=== PATIENT | male | born 1955 | race Caucasian/White ===

== ENCOUNTER → 2019-08-21 10:59 | Outpatient (CLI) | payer MEDICARE, OTHER, SELFPAY ==
--- NOTE | 2019-08-21 | DI.CT.S_ITS ---
PROCEDURE: CT PELVIS W CON INDICATIONS: MALIGNANT NEOPLASM OF PROSTATE TECHNIQUE: After the administration of oral contrast and intravenous contrast, 5 mm thick sections acquired from the iliac crests to the symphysis. 5 mm thick coronal and sagittal reformats were acquired. For radiation dose reduction, the following was used: automated exposure control, adjustment of mA and/or kV according to patient size. COMPARISON: None. FINDINGS: Image quality: Excellent. Peritoneum and bowel: Contrast enhanced bowel loops demonstrate normal wall thickness and caliber. No free fluid or air. Genitourinary: Bladder wall thickness is normal. Nodes and vessels: No iliac, pelvic, or inguinal adenopathy. Iliac vessels demonstrate normal size and enhancement. Bones: No suspicious bony lesions. Miscellaneous: No inguinal hernias. IMPRESSION: 1. No evidence of malignancy nor regional metastatic disease. Dictated by: Bryson Marmolejo M.D. on 08/21/2019 at 17:46 Approved by: Bryson Marmolejo M.D. on 08/21/2019 at 17:47
[2019-08-21 11:51] LABS: BUN Creatinine Ratio 29.7 (6-22); Blood Urea Nitrogen 22 mg/dL (9-20); Calcium 9.3 mg/dL (8.4-10.2); Carbon Dioxide 29 mmol/L (22-32); Chloride 103 mmol/L (98-107); Estimated Glomerular Filt Rate > 60.0 mL/min (>60); Glucose 98 mg/dL (80-110); HEMOLYSIS < 15 (0-50); Potassium 4.5 mmol/L (3.4-5.1); Sodium 136 mmol/L (137-145)
== END ==
PROVIDERS: PCP Family Medicine; Referring Provider Urology; Visit Provider Urology
DX: C61 Malignant neoplasm of prostate (principal)
CPT/HCPCS: 36415; 72193; 80048; Q9967

== ENCOUNTER 2019-10-25 12:12 | Day surgery (SDC) | payer MEDICARE, OTHER, SELFPAY ==
--- NOTE | 2019-10-25 | PATH_ITS ---
[facility] Accession Number: [id number] . 01 Material submitted: . PART A: rectum - RECTAL POLYP PART B: colon - COLON POLYP AT 60CM . 01 Clinical history: . SDC . 02 Diagnosis: A. Rectal Polyp, Polypectomy: Traditional serrated adenoma. Negative for high-grade dysplasia or malignancy. . B. Colon Polyp at 60 cm, Biopsy: Tubular adenoma. . MRV 10/30/2019 1012 Local . 02 Comment: A. A traditional serrated adenoma is considered an advanced adenoma. As such, assurance of complete removal of the lesion and a shortened surveillance interval are recommended. . 02 Electronically signed: . Farshad Luque MD, PhD, Pathologist NPI- [id number] . 01 Gross description: . A. Received in formalin, labeled rectal polyp, and consists of a 1.2 x 1.0 x 0.8 cm cuello-pink polyp. The base is inked blue, the specimen is bisected, and entirely submitted in cassette A1. B. Received in formalin, labeled polyp at 60 cm, and consists of multiple cuello fragments of soft tissue measuring 2.0 x 1.5 x 0.2 cm in aggregate. The specimen is entirely submitted in cassette B1. (EA/[id number]) /MRV 10/26/2019 1505 Local . 02 Pathologist provided ICD-10: D12.8, D12.6 . 02 CPT . 303516, 031825 Performed at: 01 [facility] [address] [facility][note 3], [place], [place] [id number] MD Angel Clarke MD Phone: [phone] Performed at: [facility] [address] [place], [place] [id number] MD Sharifa Gomez MD Phone: [phone]
[2019-10-25 12:37] VITALS: BP 151/80; PULSE 52; RESP 16; TEMP 36.6; O2SAT 100; BMI 25.8
[2019-10-25] MEDS: LACTATED RINGERS 1,000 ML 200 ML IV (12:37)
--- NOTE | 2019-10-25 13:06 | PM.HP.1 ---
History of Present Illness History of Present Illness Date Patient Seen: 10/25/19 Time Patient Seen: 13:06 Chief complaint: SDC Narrative: The patient presents for colorectal sreening. They have never had any previous examination for such. No personal history of colon cancer. Family history is unknown as he is adopted. On further history denies any recent gastrointestinal symptoms. No nausea, vomiting, abdominal pain, loss of appetite, unexplained weight loss, change in bowel habits, diarrhea, constipation, melena, hematochezia, or gross bright red blood per rectum. Patient History Medical History Prostate cancer (Acute) Surgical History H/O bilateral inguinal hernia repair (Acute) Family & Social History Social History: household members spouse Tobacco & Substance use: Smoking Status Current every day smoker alcohol intake current alcohol intake frequency 3 or more drinks per day Substance Use Type does not use Meds Home Medications and Allergies Home Medications Medication Instructions Recorded Confirmed Type nefazodone 150 mg PO HS #90 tab 03/01/16 10/25/19 Rx finasteride 5 mg PO DAILY 10/25/19 10/25/19 History Review of Systems Review of Systems Narrative: A 10 point review of systems is negative except as noted in the HPI Exam Vital Signs (past 8 hours): - 10/25/19 12:37 Temperature 98 F Pulse Rate 52 L Respiratory Rate 16 Blood Pressure 151/80 H Pulse Oximetry 100 Oxygen Delivery Method Room Air Narrative Exam Narrative: General-no acute distress, well nourished adult male HEENT-moist mucous membranes, no scleral icterus Neck-supple, no lymphadenopathy Chest- non labored respirations, clear to auscultation bilaterally Cardiac-regular rate no peripheral edema Abdomen-soft, nontender, non distended Extremities-warm, well perfused Neurological-alert and oriented, no focal deficits Assessment & Plan Assessment and plan (1) Screening for colon cancer: Status: Acute Assessment & Plan narrative: The patient requires colorectal screening and colonoscopy is recommended. Technical details were discussed. Risks, benefits, alternatives explained. Risks including but not limited to myocardial infarction, aspiration, bleeding, pain, missed lesion, incomplete examination, need for further radiographic studies, colonic perforation, and need for major abdominal surgery were discussed. All questions were answered to their satisfaction, and they are in agreement with this plan. COVID-19 COVID-19 status: Negative
[2019-10-25] MEDS: MIDAZOLAM 5 MG/5 ML VIAL IV ×2 (13:14→13:26)
[2019-10-25] MEDS: fentaNYL 250 MCG/5 ML INJ IV ×2 (13:14→13:26)
--- NOTE | 2019-10-25 13:58 | PM.OP.ENDO ---
Operative Date/Time/Diagnoses Date of procedure: 10/25/19 Time of procedure: 13:58 Pre-op diagnosis: Screening colonoscopy Post-op diagnosis: same Procedure & Clinicians Study performed: Colonoscopy Same procedure as scheduled: Yes Indications: 63-year-old male last colonoscopy 13 years ago presents for routine colonoscopy Surgeon: Tunde Flores Procedure Notes SCOAP/Timeout: Performed Procedure in detail: Patient placed in left lateral recumbent position. Time out was performed. Procedural sedation was administered with Versed and Fentanyl. Examination began with a thorough inspection of the perianal area there was no evidence of fissures, fistulae, external hemorrhoids or cutaneous malignancy. The colonoscopy scope was then placed into the rectum the the lumen was insufflated with air. The scope was carefully advanced forward. Ultimately the cecum was intubated and confirmed by identification of the ileocecal valve and the confluence of the taenia. The scope was then slowly withdrawn examining colon thoroughly in all directions. In the rectum the rectal columns were identified and retroflexion of the scope was performed for inspection of the distal rectum and anal canal. The colonoscopy was notable for the followin. Quality of the preparation-poor 2. Rectal adenomatous appearing polyp removed with hot snare approximately 1.5 cm in diameter hemostasis observed 3. Descending colon adenomatous appearing polyp approximately 1 cm in diameter at 60 cm from the anal verge removed with hot snare hemostasis observed 4. Sigmoid diverticulosis Scope withdrawal time: 13 Sedation minutes: 40 Findings: diverticulosis and polyp Specimen(s): other (Polyp x2) Complications: none Impression: Diverticulosis Polyps x2 removed Post-procedure Recommendations: Colonscopy in 5 years Disposition: same day surgery
[2019-10-25 14:07] VITALS: BP 128/72; PULSE 52; RESP 15; TEMP 36.3; O2SAT 95
[2019-10-25 14:11] VITALS: BP 130/68; PULSE 65; RESP 19; O2SAT 95
[2019-10-25 14:16] VITALS: BP 132/68; PULSE 51; RESP 18; O2SAT 94
[2019-10-25 14:20] VITALS: BP 139/76; PULSE 51; RESP 16; TEMP 36.2; O2SAT 97
[2019-10-25 14:21] VITALS: BP 137/75; PULSE 61; RESP 14; O2SAT 94
--- NOTE | 2019-10-25 14:56 | SUR.PHASEII ---
1435-Pt up and ambulating gait steady, to br voiding well, VSS, all ddc instructions given and pt verbalizes understanding. Iv dcd site clear, pt getting dressed now.
--- NOTE | 2019-10-25 14:57 | SUR.PHASEII ---
1445-Pt dcd via to curbside car and . No c/o
== END 2019-10-25 14:45 | disposition home or self-care (01) ==
PROVIDERS: PCP Family Medicine; Referring Provider Surgery; Visit Provider Surgery
PROC: 0DJD8ZZ Inspection of Lower Intestinal Tract, Via Natural or Artificial Opening Endoscopic (ICD-10-PCS; CPT 45378; principal; 2019-10-25 13:00)
DX: Z12.11 Encounter for screening for malignant neoplasm of colon (principal); F17.210 Nicotine dependence, cigarettes, uncomplicated; K57.30 Diverticulosis of large intestine without perforation or abscess without bleeding; D12.8 Benign neoplasm of rectum; D12.6 Benign neoplasm of colon, unspecified
CPT/HCPCS: 45385; 99152; 99153; J2250; J3010

== ENCOUNTER → 2019-10-26 09:05 | Outpatient (CLI) | payer MEDICARE, OTHER, SELFPAY ==
--- NOTE | 2019-10-26 | DI.NM.S_ITS ---
PROCEDURE: NM BONE SCAN WHOLE BODY RADIOPHARMACEUTICAL: 21.30 mCi Tc-99m MDP IV. INDICATIONS: Malignant neoplasm of prostate TECHNIQUE: Delayed whole-body scintigrams were obtained approximately 3-4 hours after intravenous injection of radiotracer. Anterior and posterior views were acquired from vertex to feet. Additional left and right oblique views of the pelvis were obtained. COMPARISON: [facility], CT, CT PELVIS W CON, 08/21/2019, 12:48. FINDINGS: No areas of relative intense radiotracer uptake that would be suspicious for osseous metastatic disease. No areas of photopenia identified in the osseous skeleton. Increased radiotracer uptake noted in the cervical spine, the lumbar spine, the shoulders bilaterally, the knees bilaterally and the left wrists compatible with osteoarthritis. No abnormal soft tissue uptake. Activity in the kidneys is normal and symmetric. IMPRESSION: No scintigraphic evidence of osseous metastatic Dictated by: Fanny Olmstead MD, PhD on 10/26/2019 at 14:22 Approved by: Fanny Olmstead MD, PhD on 10/26/2019 at 14:24
== END ==
PROVIDERS: PCP Family Medicine; Referring Provider Family Medicine
DX: C61 Malignant neoplasm of prostate (principal)
CPT/HCPCS: 78306; A9503

== ENCOUNTER → 2020-04-17 09:05 | Outpatient (CLI) | payer MEDICARE, OTHER, SELFPAY ==
[2020-04-18 07:36] LABS: Insulin Level Total 4.8 uIU/mL (2.6-24.9)
[2020-04-25 13:11] LABS: 1,25-Dihydroxy, Vitamin D-2 <10 pg/mL (.)
== END ==
PROVIDERS: PCP Family Medicine; Referring Provider Family Medicine; Visit Provider Family Medicine
DX: E55.9 Vitamin D deficiency, unspecified (principal); R53.83 Other fatigue; E74.39 Other disorders of intestinal carbohydrate absorption
CPT/HCPCS: 82306; 82652; 82777; 83516; 83525; 84080

== ENCOUNTER → 2020-07-08 09:02 | Outpatient (CLI) | payer MEDICARE, OTHER, SELFPAY ==
[2020-07-08 20:45] LABS: High Sensitivity CRP - Cardiac > 15.0 mg/L (1.0-3.0)
[2020-07-08 20:55] LABS: Prostate Specific Antigen < 0.064 ng/mL (0.10-4.00)
[2020-07-10 04:58] LABS: Homocysteine 9.2 umol/L (0.0-17.2)
[2020-07-10 22:36] LABS: Zinc 63 ug/dL (44-115)
== END ==
PROVIDERS: PCP Family Medicine; Visit Provider Family Medicine
DX: C61 Malignant neoplasm of prostate (principal)
CPT/HCPCS: 83090; 84153; 84630; 86140

== ENCOUNTER → 2020-12-31 12:02 | Outpatient (CLI) | payer MEDICARE, OTHER, SELFPAY ==
[2020-12-31 19:44] LABS: C-Reactive Protein Quant < 0.5 mg/dL (<1.0); Lactate Dehydrogenase 522 U/L (313-618)
[2020-12-31 20:17] LABS: Ferritin 23 ng/mL (18-464)
[2021-01-05 22:36] LABS: Alkaline Phosphatase, Bone Spe 15.7 ug/L (7.6-25.1)
[2021-01-08 14:34] LABS: Galectin -3 9.2
[2021-01-21 09:19] LABS: Result 4800
== END ==
PROVIDERS: PCP Family Medicine; Visit Provider Family Medicine
DX: C61 Malignant neoplasm of prostate (principal)
CPT/HCPCS: 82728; 82777; 83516; 83615; 84080; 84153; 86140

== ENCOUNTER → 2021-06-08 08:14 | Outpatient (CLI) | payer MEDICARE, OTHER, SELFPAY ==
[2021-06-08 18:32] LABS: Cholesterol 231 mg/dL (140-199); HDL Cholesterol 54 mg/dL (40-60); LDL Cholesterol Calculated 162 mg/dL (<100); Triglycerides 75 mg/dL (35-150)
[2021-06-08 19:04] LABS: Prostate Specific Antigen 0.223 ng/mL (0.10-4.00)
== END ==
PROVIDERS: PCP Family Medicine; Visit Provider Family Medicine
DX: E78.00 Pure hypercholesterolemia, unspecified (principal); C61 Malignant neoplasm of prostate
CPT/HCPCS: 80061; 84153

== ENCOUNTER → 2022-01-26 11:58 | Outpatient (CLI) | payer MEDICARE, OTHER, SELFPAY ==
--- NOTE | 2022-01-26 12:09 | DI.CT.S_ITS ---
PROCEDURE: CT LUNG LOW DOSE SCREENING INDICATIONS: Past History of smoking TECHNIQUE: Noncontrast 2.0-2.5 mm thick sections acquired from the pulmonary apices to the posterior costophrenic angles. 7 mm thick axial MIP, and 5 mm coronal and sagittal reformats were then acquired. A low radiation dose technique was utilized. COMPARISON: [facility], CT, CT CHEST WITHOUT CONTRAST, 12/05/2019, 11:00. FINDINGS: Image quality: Diagnostic, given the low radiation dose technique. Lungs and pleura: There is a stable 4 mm pulmonary nodule within the lateral aspect of the right upper lobe unchanged from the study dated December 05, 2019 (series 3/image 160). A stable 5 mm pulmonary nodule is present within the right middle lobe (series 3/image 224). A stable 8 mm pulmonary nodule is present within the right lower lobe (series 3/image 205). Mediastinum: Heart size is normal. No pericardial effusion. No mediastinal adenopathy by size criteria. Thoracic aorta and central pulmonary arteries are normal in size. Esophagus is normal in caliber. No hiatal hernia. Bones and chest wall: No suspicious bony lesions. No vertebral body compression fractures. No axillary or supraclavicular adenopathy by size criteria. Thyroid gland is unremarkable. Abdomen: Visualized upper abdomen solid organs and bowel loops appear normal in the absence of contrast. IMPRESSION: No suspicious pulmonary nodules or mass lesions. LUNG-RADS 1; annual CT surveillance recommended. Dictated by: Aury Kidd M.D. on 01/26/2022 at 13:29 Approved by: Aury Kidd M.D. on 01/26/2022 at 13:50
== END ==
PROVIDERS: PCP Family Medicine; Referring Provider Family Medicine; Visit Provider Family Medicine
DX: Z12.2 Encounter for screening for malignant neoplasm of respiratory organs (principal); C61 Malignant neoplasm of prostate; R91.8 Other nonspecific abnormal finding of lung field; Z87.891 Personal history of nicotine dependence
CPT/HCPCS: 36415; 71250; 84153

== ENCOUNTER → 2022-01-26 12:09 | Outpatient (CLI) | payer MEDICARE, OTHER, SELFPAY | PROVIDERS: PCP Family Medicine; Referring Provider Radiology Radiation Oncology; Visit Provider Radiology Radiation Oncology | DX: C61 Malignant neoplasm of prostate (principal) | CPT/HCPCS: 36415; 84153 ==

== ENCOUNTER → 2022-02-09 13:02 | Outpatient (CLI) | payer MEDICARE, OTHER, SELFPAY ==
[2022-02-09 21:04] LABS: Add Manual Diff / Slide Review NO; Basophils Absolute Auto 0 /uL (0-100); Basophils Percent Auto 0.3 % (0-2); Eosinophils Absolute Auto 100 /uL (0-450); Eosinophils Percent Auto 2.8 % (2-4); Hematocrit 33.8 % (41-53); Lymphocytes Absolute Auto 1300 /uL (1100-4500); Lymphocytes Percent Auto 29.2 % (25-40); Mean Corpuscular HGB Conc 32.6 % (30-36); Mean Corpuscular Hemoglobin 29.1 PG (26-34); Mean Corpuscular Volume 89.4 fL (80-100); Monocytes Absolute Auto 300 /uL (0-900); Monocytes Percent Auto 7.6 % (3-14); Neutrophils Absolute Auto 2600 /uL (1500-7000); Neutrophils Percent Auto 60.1 % (50-75); Platelet Count 207 X10^3/uL (150-400); Red Blood Cell Count 3.79 X10^6/uL (4.5-5.9); White Blood Cell Count 4.4 X10^3/uL (4.5-11.0)
[2022-02-09 23:37] LABS: HEMOLYSIS 18 (0-50); Iron 150 ug/dL (49-181)
[2022-02-09 23:48] LABS: Percent Iron Saturation 47 % (20-50); Total Iron Binding Capacity 320 ug/dL (261-462); Transferrin 254 mg/dL (206-381)
[2022-02-10 00:10] LABS: Prostate Specific Antigen 0.423 ng/mL (0.10-4.00)
[2022-02-10 00:32] LABS: Vitamin B12 659 pg/mL (239-931)
== END ==
PROVIDERS: PCP Family Medicine; Visit Provider Family Medicine
DX: D64.9 Anemia, unspecified (principal); C61 Malignant neoplasm of prostate
CPT/HCPCS: 82607; 83540; 83550; 84153; 85025

== ENCOUNTER → 2022-06-28 13:04 | Outpatient (CLI) | payer MEDICARE, OTHER, SELFPAY ==
[2022-06-28 20:49] LABS: Prostate Specific Antigen 0.307 ng/mL (0.10-4.00)
== END ==
PROVIDERS: PCP Family Medicine; Visit Provider Radiology Radiation Oncology
DX: C61 Malignant neoplasm of prostate (principal)
CPT/HCPCS: 84153

== ENCOUNTER → 2022-08-26 13:38 | Outpatient (CLI) | payer MEDICARE, OTHER, SELFPAY ==
[2022-08-26 20:36] LABS: Vitamin D 25 Hydroxy (D3) 40.5 ng/mL (30.0-100.0)
[2022-08-28 08:39] LABS: Homocysteine 9.6 umol/L (0.0-17.2)
[2022-08-29 23:40] LABS: Zinc 113 ug/dL (44-115)
[2022-08-31 10:31] LABS: Percent Free Testosterone 3.07 % (1.50-4.20); Testosterone Free 18.03 ng/dL (5.00-21.00); Testosterone Total 587.3 ng/dL (264.0-916.0)
[2022-09-01 15:21] LABS: Dihydrotestosterone 11 ng/dL (.)
== END ==
PROVIDERS: PCP Family Medicine; Visit Provider Family Medicine
DX: Z79.818 Long term (current) use of other agents affecting estrogen receptors and estrogen levels (principal); E78.2 Mixed hyperlipidemia; C61 Malignant neoplasm of prostate
CPT/HCPCS: 82306; 82642; 83090; 84402; 84403; 84630

== ENCOUNTER → 2022-12-23 11:04 | Outpatient (CLI) | payer MEDICARE, OTHER, SELFPAY ==
[2022-12-23 19:28] LABS: Hemoglobin A1C% w Est Avg Glu 5.9 % (4.0-6.0)
[2022-12-23 20:03] LABS: Prostate Specific Antigen 0.179 ng/mL (0.10-4.00)
== END ==
PROVIDERS: Family Medicine; PCP Family Medicine; Visit Provider Radiology Radiation Oncology
DX: C61 Malignant neoplasm of prostate (principal); Z13.1 Encounter for screening for diabetes mellitus
CPT/HCPCS: 83036; 84153

== ENCOUNTER → 2023-03-21 09:15 | Outpatient (CLI) | payer MEDICARE, OTHER, SELFPAY ==
--- NOTE | 2023-03-21 09:30 | DI.CT.S_ITS ---
PROCEDURE: CT LUNG LOW DOSE SCREENING INDICATIONS: greater than20 pack yr history, quit 2016 TECHNIQUE: Noncontrast 2.0-2.5 mm thick sections acquired from the pulmonary apices to the posterior costophrenic angles. 7 mm thick axial MIP, and 5 mm coronal and sagittal reformats were then acquired. For radiation dose reduction, the following was used: automated exposure control, adjustment of mA and/or kV according to patient size. COMPARISON: [facility], CT, CT LUNG LOW DOSE SCREENING, 01/26/2022, 12:02, 12/05/2019 FINDINGS: Image quality: Diagnostic. Lower Neck: No enlarged lymph nodes. Thyroid: No thyroid nodules which require sonographic follow up, per consensus guidelines. Axillae: No enlarged lymph nodes. Chest Wall: Unremarkable. Bones: Unremarkable. Lungs and Pleura: No pneumothorax or pleural effusions. Redemonstration of pulmonary nodules as follows: -4 mm right upper lobe solid nodule (3/163, MIP image 82), stable since 12/05/2019 -5 mm right middle lobe solid peripheral nodule (3/225, MIP image 113), stable since 12/05/2019. -8 mm right lower lobe juxtapleural solid nodule (3/214, MIP image 107), stable since 12/05/2019 No new or enlarging pulmonary nodule. Heart: Heart size is normal. No pericardial effusion. Thoracic Vessels: The aorta and pulmonary arteries demonstrate normal size. Mediastinum and Ana: No enlarged lymph nodes. Esophagus: No wall thickening. No hiatal hernia. Upper Abdomen: Visualized upper abdomen solid organs and bowel loops appear normal in the absence of contrast. Stable hypoattenuating mass at the hepatic dome, probable cyst. IMPRESSION: Stable pulmonary nodules. No new or enlarging pulmonary nodule. LUNG-RADS 2; continued annual screening, if eligible. Clinically Significant Non-pulmonary Findings: None. Approved by: Lula Valnetin M.D. on 03/21/2023 at 12:26
== END ==
LOC: CT 09:16
PROVIDERS: PCP Family Medicine; Referring Provider Family Medicine; Visit Provider Family Medicine
DX: Z87.891 Personal history of nicotine dependence (principal); Z12.2 Encounter for screening for malignant neoplasm of respiratory organs; R91.8 Other nonspecific abnormal finding of lung field
CPT/HCPCS: 71271

== ENCOUNTER → 2023-06-08 14:07 | Outpatient (CLI) | payer MEDICARE, OTHER, SELFPAY ==
[2023-06-08 19:20] LABS: NT-proBNP (BNP-Adult 18+) 189 pg/mL (<125)
[2023-06-08 19:29] LABS: Vitamin D 25 Hydroxy (D3) 72.4 ng/mL (30.0-100.0)
[2023-06-08 20:17] LABS: Hemoglobin A1C% w Est Avg Glu 5.9 % (4.0-6.0)
[2023-06-09 09:36] LABS: Homocysteine 10.8 umol/L (0.0-17.2)
[2023-06-10 04:55] LABS: Zinc 72 ug/dL (44-115)
== END ==
PROVIDERS: Radiology Radiation Oncology; PCP Family Medicine; Visit Provider Family Medicine
DX: Z13.6 Encounter for screening for cardiovascular disorders (principal); E78.2 Mixed hyperlipidemia; Z79.818 Long term (current) use of other agents affecting estrogen receptors and estrogen levels; R73.03 Prediabetes; C61 Malignant neoplasm of prostate; E60 Dietary zinc deficiency; R79.89 Other specified abnormal findings of blood chemistry
CPT/HCPCS: 82306; 83036; 83090; 83880; 84153; 84630

== ENCOUNTER → 2024-01-05 10:06 | Outpatient (CLI) | payer MEDICARE, OTHER, SELFPAY ==
[2024-01-05 19:02] LABS: Add Manual Diff / Slide Review NO; Basophils Absolute Auto 0 /uL (0-100); Basophils Percent Auto 0.6 % (0-2); Eosinophils Absolute Auto 200 /uL (0-450); Eosinophils Percent Auto 4.8 % (2-4); Hematocrit 28.4 % (41-53); Hemoglobin 9.5 g/dL (13.5-17.5); Lymphocytes Absolute Auto 1700 /uL (1100-4500); Lymphocytes Percent Auto 36.2 % (25-40); Mean Corpuscular HGB Conc 33.6 % (30-36); Mean Corpuscular Hemoglobin 30.5 PG (26-34); Mean Corpuscular Volume 90.8 fL (80-100); Monocytes Absolute Auto 500 /uL (0-900); Monocytes Percent Auto 10.6 % (3-14); Neutrophils Absolute Auto 2200 /uL (1500-7000); Neutrophils Percent Auto 47.8 % (50-75); Platelet Count 191 X10^3/uL (150-400); Red Blood Cell Count 3.13 X10^6/uL (4.5-5.9); Red Cell Distribution Width 15.8 % (11.6-14.8); White Blood Cell Count 4.6 X10^3/uL (4.5-11.0)
[2024-01-05 19:08] LABS: Alanine Aminotransferase 22 IU/L (<50); Albumin 3.8 g/dL (3.5-5.0); Albumin Globulin Ratio 0.6 (1.0-2.8); Alkaline Phosphatase 102 U/L (38-126); Aspartate Aminotransferase 34 IU/L (17-59); BUN Creatinine Ratio 32.2 (6-22); Bilirubin Total 0.6 mg/dL (0.2-1.3); Blood Urea Nitrogen 29 mg/dL (9-20); Calcium 10.2 mg/dL (8.4-10.2); Carbon Dioxide 26 mmol/L (22-32); Chloride 104 mmol/L (98-107); Cholesterol 215 mg/dL (140-199); Estimated Glomerular Filt Rate > 60 mL/min (>60); Globulin 6.8 g/dL (1.7-4.1); Glucose 95 mg/dL (80-110); HDL Cholesterol 39 mg/dL (40-60); HEMOLYSIS < 15 (0-50); LDL Cholesterol Calculated 152 mg/dL (<100); Potassium 4.8 mmol/L (3.4-5.1); Sodium 137 mmol/L (137-145); Total Protein 10.6 g/dL (6.3-8.2); Triglycerides 121 mg/dL (35-150)
[2024-01-05 19:15] LABS: High Sensitivity CRP - Cardiac 3.5 mg/L (1.0-3.0)
[2024-01-05 19:39] LABS: Prostate Specific Antigen 0.107 ng/mL (0.10-4.00)
[2024-01-05 19:43] LABS: Hemoglobin A1C% w Est Avg Glu 5.5 % (4.0-6.0)
[2024-01-08 07:37] LABS: Dehydroepiandrosterone Sulfate 46.1 ug/dL (30.9-295.6)
[2024-01-09 17:36] LABS: Estradiol 41.6 pg/mL (7.6-42.6); Estriol,Serum <0.1 ng/mL (Not Estab.); Estrone,Serum 41 pg/mL (0-174)
== END ==
PROVIDERS: Radiology Radiation Oncology; PCP Family Medicine; Visit Provider Family Medicine
DX: E78.2 Mixed hyperlipidemia (principal); R73.03 Prediabetes; C61 Malignant neoplasm of prostate; Z79.818 Long term (current) use of other agents affecting estrogen receptors and estrogen levels; Z13.6 Encounter for screening for cardiovascular disorders; Z85.820 Personal history of malignant melanoma of skin
CPT/HCPCS: 80053; 80061; 82627; 82670; 82677; 82679; 83036; 84080; 84153; 84402; 84403; 85025; 86140

== ENCOUNTER → 2024-02-23 11:35 | Outpatient (CLI) | payer MEDICARE, OTHER, SELFPAY ==
[2024-02-23 19:59] LABS: Hematocrit 27.5 % (41-53); Mean Corpuscular HGB Conc 32.7 % (30-36); Mean Corpuscular Volume 91.8 fL (80-100); Platelet Count 195 X10^3/uL (150-400); Red Cell Distribution Width 15.8 % (11.6-14.8); White Blood Cell Count 5.3 X10^3/uL (4.5-11.0)
[2024-02-23 20:01] LABS: Reticulocyte Count, Percent 1.4 % (0.9-2.6)
[2024-02-23 20:08] LABS: HEMOLYSIS < 15 (0-50); Iron 115 ug/dL (49-181)
[2024-02-23 20:09] LABS: Lactate Dehydrogenase 200 U/L (120-246)
[2024-02-23 20:22] LABS: Percent Iron Saturation 45 % (20-50); Total Iron Binding Capacity 258 ug/dL (261-462); Transferrin 220 mg/dL (206-381)
[2024-02-23 20:28] LABS: Vitamin D 25 Hydroxy (D3) 89.6 ng/mL (30.0-100.0)
[2024-02-23 20:47] LABS: Ferritin 71 ng/mL (18-464)
[2024-02-23 20:51] LABS: Platelet Estimate Adequate on smear; RBC Morphology Normal Morphology
[2024-02-23 21:15] LABS: Lymphocytes Percent Manual 21.4 % (25-45); Monocytes Percent Manual 9.2 % (2-11); Neutrophils Absolute Manual 3514 /uL (3000-5900); Segmented Neutrophils Percent 66.3 % (38-70); Total Cells Counted 98
[2024-02-25 03:09] LABS: Haptoglobin 33 mg/dL (32-363)
[2024-02-25 17:40] LABS: Free Kappa Lt Chains, Serum 1430.2 mg/L (3.3-19.4); Free Lambda Lt Chains,Serum 5.7 mg/L (5.7-26.3)
[2024-02-26 12:11] LABS: Zinc 79 ug/dL (44-115)
[2024-02-28 13:10] LABS: Immunoglobulin A, Serum 22 mg/dL (61-437); Immunoglobulin G,Serum 6066 mg/dL (603-1613); Immunoglobulin M, Serum 36 mg/dL (20-172)
[2024-02-28 14:11] LABS: Alpha-1-Globulin 0.3 g/dL (0.0-0.4); Alpha-2-Globulin 0.7 g/dL (0.4-1.0); Gamma Globulin 4.4 g/dL (0.4-1.8); Globulin Total 6.6 g/dL (2.2-3.9); Protein, Total 10.6 g/dL (6.0-8.5)
== END ==
PROVIDERS: PCP Family Medicine; Visit Provider Family Medicine
DX: Z79.818 Long term (current) use of other agents affecting estrogen receptors and estrogen levels (principal); D64.9 Anemia, unspecified; E78.2 Mixed hyperlipidemia; C61 Malignant neoplasm of prostate; K62.5 Hemorrhage of anus and rectum; E60 Dietary zinc deficiency; R73.03 Prediabetes; Z85.820 Personal history of malignant melanoma of skin; R77.9 Abnormality of plasma protein, unspecified
CPT/HCPCS: 82306; 82728; 82746; 82784; 83010; 83090; 83540; 83550; 83615; 83883; 84155; 84165; 84630; 85025; 85045; 86334

== ENCOUNTER → 2024-03-05 10:47 | Outpatient (CLI) | payer MEDICARE, OTHER, SELFPAY ==
--- NOTE | 2024-03-05 10:48 | DI.CT.S_ITS ---
PROCEDURE: CT LUNG LOW DOSE SCREENING INDICATIONS: greater than20 pack yr history, quit 2016 TECHNIQUE: Noncontrast 2.0-2.5 mm thick sections acquired from the pulmonary apices to the posterior costophrenic angles. 7 mm thick axial MIP, and 5 mm coronal and sagittal reformats were then acquired. For radiation dose reduction, the following was used: automated exposure control, adjustment of mA and/or kV according to patient size. COMPARISON: [facility], CT, CT LUNG LOW DOSE SCREENING, 03/21/2023, 9:24. FINDINGS: Image quality: Diagnostic. Lower Neck: No enlarged lymph nodes. Thyroid: No thyroid nodules which require sonographic follow up, per consensus guidelines. Axillae: No enlarged lymph nodes. Chest Wall: Unremarkable. Bones: Osteoporosis by Hounsfield units criteria. Mild cortical disruption of the anterior sternal body, with very mild angulation along the posterior margin; no retrosternal hematoma. Lungs and Pleura: No pneumothorax or pleural effusions. Pleural parenchymal bands in the lower lobes, either atelectasis or post infectious scarring. Stable juxtapleural solid nodules. no new, suspicious pulmonary nodules identified. Heart: Heart size is enlarged, with mild 2 vessel coronary artery calcifications. No pericardial effusion. Thoracic Vessels: The aorta and pulmonary arteries demonstrate normal size. Mediastinum and Naa: No enlarged lymph nodes. Esophagus: No wall thickening. No hiatal hernia. Upper Abdomen: 3.2 centimeter cyst at the liver dome. Additional subcentimeter hypoattenuating lesions, too small to characterize by CT. IMPRESSION: No suspicious pulmonary nodules. LUNG-RADS 2; continued annual screening, if eligible. Clinically Significant Non-pulmonary Findings: None. Nondisplaced sternal body fracture. No retrosternal hematoma. Osteoporosis by Hounsfield units criteria. Dictated by: Constantino Hart M.D. on 03/05/2024 at 11:39 Approved by: Constantino Hart M.D. on 03/05/2024 at 11:43
== END ==
PROVIDERS: PCP Family Medicine; Referring Provider Family Medicine; Visit Provider Family Medicine
DX: S22.22XA Fracture of body of sternum, initial encounter for closed fracture (principal); Z12.2 Encounter for screening for malignant neoplasm of respiratory organs; R91.8 Other nonspecific abnormal finding of lung field; I51.7 Cardiomegaly; I25.10 Atherosclerotic heart disease of native coronary artery without angina pectoris; K76.89 Other specified diseases of liver; M81.0 Age-related osteoporosis without current pathological fracture; Z87.891 Personal history of nicotine dependence; D64.9 Anemia, unspecified; K62.5 Hemorrhage of anus and rectum
CPT/HCPCS: 71271; 82274

== ENCOUNTER → 2024-04-09 12:25 | Outpatient (CLI) | payer MEDICARE, OTHER, SELFPAY ==
[2024-03-09 11:38] LABS: Fecal Immunochemical Test Negative (Negative)
== END ==
PROVIDERS: PCP Family Medicine; Referring Provider Family Medicine; Visit Provider Family Medicine
DX: D64.9 Anemia, unspecified (principal); K62.5 Hemorrhage of anus and rectum
CPT/HCPCS: 82274

== ENCOUNTER → 2024-05-04 09:03 | Outpatient (CLI) | payer MEDICARE, OTHER, SELFPAY ==
[2024-05-04 10:06] LABS: Add Manual Diff / Slide Review NO; Basophils Absolute Auto 0 /uL (0-100); Basophils Percent Auto 0.3 % (0-2); Eosinophils Absolute Auto 500 /uL (0-450); Eosinophils Percent Auto 9.7 % (2-4); Hematocrit 25.1 % (41-53); Hemoglobin 8.4 g/dL (13.5-17.5); Lymphocytes Absolute Auto 1400 /uL (1100-4500); Lymphocytes Percent Auto 26.1 % (25-40); Mean Corpuscular HGB Conc 33.6 % (30-36); Mean Corpuscular Hemoglobin 30.2 PG (26-34); Monocytes Absolute Auto 500 /uL (0-900); Monocytes Percent Auto 9.3 % (3-14); Neutrophils Absolute Auto 2900 /uL (1500-7000); Neutrophils Percent Auto 54.6 % (50-75); Platelet Count 188 X10^3/uL (150-400); Red Blood Cell Count 2.79 X10^6/uL (4.5-5.9); White Blood Cell Count 5.3 X10^3/uL (4.5-11.0)
[2024-05-04 10:15] LABS: Fibrinogen 334 mg/dL (238-498)
[2024-05-04 10:23] LABS: Alanine Aminotransferase 38 IU/L (<50); Albumin 3.9 g/dL (3.5-5.0); Alkaline Phosphatase 84 U/L (38-126); Aspartate Aminotransferase 44 IU/L (17-59); BUN Creatinine Ratio 26.2 (6-22); Bilirubin Total 0.5 mg/dL (0.2-1.3); Blood Urea Nitrogen 38 mg/dL (9-20); Calcium 10.8 mg/dL (8.4-10.2); Carbon Dioxide 27 mmol/L (22-32); Chloride 101 mmol/L (98-107); Estimated Glomerular Filt Rate 52 mL/min (>60); Glucose 94 mg/dL (80-110); HEMOLYSIS < 15 (0-50); Potassium 4.3 mmol/L (3.4-5.1); Sodium 138 mmol/L (137-145)
[2024-05-04 10:24] LABS: Globulin 7.10001 g/dL (1.7-4.1)
[2024-05-04 10:31] LABS: Total Protein 11.3 g/dL (6.3-8.2)
[2024-05-04 10:47] LABS: D Dimer 1150 ng/ml (<500)
[2024-05-04 11:11] LABS: Ferritin 87 ng/mL (18-464)
[2024-05-05 03:40] LABS: CRP, High Sensitivity 4.22 mg/L (0.00-3.00)
[2024-05-07 07:36] LABS: Interleukin-6, Serum 7.3 pg/mL (0.0-13.0)
[2024-05-07 12:11] LABS: Alkaline Phosphatase, Bone Spe 15.8 ug/L (7.6-24.8)
[2024-05-08 15:09] LABS: Albumin 3.9 g/dL (2.9-4.4); Alpha-1-Globulin 0.4 g/dL (0.0-0.4); Alpha-2-Globulin 0.8 g/dL (0.4-1.0); Gamma Globulin 4.4 g/dL (0.4-1.8); Globulin Total 6.9 g/dL (2.2-3.9); Protein, Total 10.8 g/dL (6.0-8.5)
[2024-05-08 17:09] LABS: Free Kappa Lt Chains, Serum 1820.1 mg/L (3.3-19.4); Free Lambda Lt Chains,Serum 4.7 mg/L (5.7-26.3)
== END ==
PROVIDERS: PCP Family Medicine; Referring Provider Internal Medicine; Visit Provider Internal Medicine
DX: C90.00 Multiple myeloma not having achieved remission (principal); D47.2 Monoclonal gammopathy; S22.20XA Unspecified fracture of sternum, initial encounter for closed fracture; C61 Malignant neoplasm of prostate; Z79.818 Long term (current) use of other agents affecting estrogen receptors and estrogen levels; D64.9 Anemia, unspecified
CPT/HCPCS: 80053; 82728; 83529; 83883; 84080; 84146; 84155; 84165; 84402; 84403; 85025; 85379; 85384; 86140

== ENCOUNTER → 2024-09-11 14:13 | Outpatient (CLI) | payer MEDICARE, OTHER, SELFPAY ==
--- NOTE | 2024-09-11 14:14 | DI.US.S_ITS ---
PROCEDURE: US PERIPH VENOUS LOW EXTREM BI INDICATIONS: Evaluate for DVT TECHNIQUE: Real-time imaging, as well as color and pulse Doppler interrogation, were performed of the deep veins of both legs from the inguinal ligament to the popliteal fossa, with documentation of the visualized calf veins. COMPARISON: None. FINDINGS: Right: The common femoral, femoral, popliteal, and the visualized calf veins are normally compressible, and free of intraluminal thrombus. Color and pulse Doppler demonstrate normal phasic intravascular flow. There is normal augmentation response to distal compression maneuver. Left: The common femoral, femoral, popliteal, and the visualized calf veins are normally compressible, and free of intraluminal thrombus. Color and pulse Doppler demonstrate normal phasic intravascular flow. There is normal augmentation response to distal compression maneuver. IMPRESSION: No findings of deep venous thrombosis in either lower extremity. Dictated by: Nathan Lee M.D. on 09/11/2024 at 14:14 Approved by: Nathan Lee M.D. on 09/11/2024 at 14:14
== END ==
LOC: US 14:13
PROVIDERS: PCP Family Medicine; Referring Provider Family Medicine; Visit Provider Family Medicine
DX: M79.89 Other specified soft tissue disorders (principal)
CPT/HCPCS: 93970

== ENCOUNTER → 2024-11-12 09:39 | Outpatient (CLI) | payer MEDICARE, OTHER, SELFPAY ==
--- NOTE | 2024-11-12 09:41 | DI.RAD.S_ITS ---
PROCEDURE: XR DEXA AXIAL SKELETON INDICATIONS: sternal fracture without trauma COMPARISON: None. FINDINGS: Lumbar Spine: Bone mineral density 1.230 g/cm2, T score 1.9. Left Femoral Neck: Bone mineral density 0.654 g/cm2, T score -1.8. Left Hip: Bone mineral density 0.778 g/cm2, T score -1.3. Left Forearm: Bone mineral density 0.862 g/cm2, T score 2.8. Fracture Risk Calculation (when applicable): 10-year fracture risk of a major osteoporotic fracture 19 percent and of a hip fracture 5.8 percent. (T score greater or equal to -1.0 to: NORMAL) (T score from -1.1 to -2.4: OSTEOPENIA) (T score less than or equal to -2.5: OSTEOPOROSIS) IMPRESSION: Osteopenia--- recommend repeat DEXA in 2-3 years for reassessment. Follow-up guidelines as follows: Osteoporosis: Consider a repeat DEXA and Vertebral Fracture Assessment (VFA) exam in 2 years or sooner if medically necessary, to reassess this patient's status. Osteopenia: Consider a repeat DEXA in 2-3 years to reassess this patient's status, or if there is a new clinical indication. Normal: Consider a repeat DEXA in 5 years or sooner, or if there is a new clinical indication. All treatment decisions require clinical judgment and consideration of individual patient factors, including patient preferences, comorbidities, previous drug use, risk factors not captured in the FRAX model (e.g., frailty, falls, vitamin D deficiency, increased bone turnover, interval significant decline in bone density ) and possible under- or over-estimation of fracture risk by FRAX. In addition, the NOF Guide recommends that FDA-approved medical therapies be considered in postmenopausal women and men age >= 50 years with a: * Hip or vertebral (clinical or morphometric) fracture * T-score of <=-2.5 at the spine or hip * Ten-year fracture probability by FRAX of >= 3% for hip fracture or >=20% for major osteoporotic fracture. Dictated by: Geremias Sanchez M.D. on 11/12/2024 at 20:40 Approved by: Geremias Sanchez M.D. on 11/12/2024 at 20:42
[2024-11-24 14:40] LABS: Percent Free Testosterone 1.95 % (1.50-4.20)
== END ==
PROVIDERS: PCP Family Medicine; Referring Provider Family Medicine; Visit Provider Family Medicine
DX: C61 Malignant neoplasm of prostate (principal); C90.00 Multiple myeloma not having achieved remission; Z13.820 Encounter for screening for osteoporosis; M81.0 Age-related osteoporosis without current pathological fracture; D47.2 Monoclonal gammopathy; S22.20XS Unspecified fracture of sternum, sequela; D64.9 Anemia, unspecified; R73.03 Prediabetes; R63.4 Abnormal weight loss; E60 Dietary zinc deficiency; D51.9 Vitamin B12 deficiency anemia, unspecified; Z79.818 Long term (current) use of other agents affecting estrogen receptors and estrogen levels
CPT/HCPCS: 36415; 77080; 82523; 84153; 84402; 84403

== ENCOUNTER → 2024-11-19 08:43 | Outpatient (CLI) | payer MEDICARE, OTHER, SELFPAY ==
[2024-11-19 10:14] LABS: Fibrinogen 314 mg/dL (238-498)
[2024-11-19 10:22] LABS: Ferritin 24 ng/mL (18-464)
[2024-11-20 03:36] LABS: CRP, High Sensitivity 2.29 mg/L (0.00-3.00)
== END ==
PROVIDERS: PCP Family Medicine; Referring Provider Family Medicine; Visit Provider Family Medicine
DX: C61 Malignant neoplasm of prostate (principal); D64.9 Anemia, unspecified; Z79.818 Long term (current) use of other agents affecting estrogen receptors and estrogen levels; M81.0 Age-related osteoporosis without current pathological fracture; M85.88 Other specified disorders of bone density and structure, other site; R73.03 Prediabetes; R63.4 Abnormal weight loss; E60 Dietary zinc deficiency
CPT/HCPCS: 36415; 82627; 82728; 83090; 83615; 84080; 84153; 84630; 85379; 85384; 86140